=== PATIENT | male | born 1990 | race Caucasian/White ===

== ENCOUNTER 2019-11-07 03:05 | Emergency (ER) | payer BC ==
[~2019-11-07] VITALS: Ht 172.7 cm; Wt 138.5 kg
[2019-11-07 03:09] VITALS: Ht 172.7 cm; Wt 138.5 kg
[2019-11-07 05:37] VITALS: BP 145/83
== END 2019-11-07 05:37 | disposition home or self-care (01) ==
LOC: ED 03:05
DX: B34.9 Viral infection, unspecified (principal)
CPT/HCPCS: Q0092

== ENCOUNTER 2019-11-09 21:59 | Inpatient (IN) | payer BC ==
[~2019-11-09] VITALS: Ht 172.7 cm; Wt 145.0 kg
[2019-11-09 23:16] LABS: BASOPHIL % 0.1 % (0-2); RED CELL DISTRIBUTION WIDTH 14.4 % (11.5-14.5)
[2019-11-09 23:17] LABS: PLATELET COUNT 128 x10^3mcL (130-400)
[2019-11-09 23:36] LABS: CALCIUM 7.6 mg/dL (8.5-10.1); CARBON DIOXIDE 25.6 mmol/L (21-32); CHLORIDE SERUM 95 mmol/L (98-107); GFR1 > 60 mL/min; GLUCOSE SERUM 110 mg/dL (74-106); POTASSIUM SERUM 4.2 mmol/L (3.5-5.1); SODIUM SERUM 129 mmol/L (136-145)
[2019-11-09 23:41] LABS: ALKALINE PHOSPHATASE 58 U/L (46-116); ALT/SGPT 40 U/L (16-63); AST/SGOT 59 U/L (15-37); BILIRUBIN TOTAL 0.43 mg/dL (0.20-1.00); TOTAL PROTEIN, SERUM 6.4 g/dL (6.4-8.2)
[2019-11-09 23:42] LABS: ALBUMIN 2.6 g/dL (3.4-5.0)
[2019-11-10] VITALS (8 sets, daily range): BP systolic 96–155; BP diastolic 55–97
[2019-11-10 07:03] LABS: CALCIUM 7.7 mg/dL (8.5-10.1); CARBON DIOXIDE 25.9 mmol/L (21-32); CHLORIDE SERUM 97 mmol/L (98-107); GFR1 > 60 mL/min; GLUCOSE SERUM 107 mg/dL (74-106); POTASSIUM SERUM 4.3 mmol/L (3.5-5.1); SODIUM SERUM 131 mmol/L (136-145)
[2019-11-11] VITALS (15 sets, daily range): BP systolic 91–119; BP diastolic 41–65; Ht 172.7 cm; Wt 145.0 kg
[2019-11-11 04:34] LABS: UA SPECIFIC GRAVITY >=1.030 (1.005-1.035); microscopic required? YES; urine erythrocyte 3+ (NEGATIVE)
[2019-11-11 06:13] LABS: CALCIUM 7.5 mg/dL (8.5-10.1); CARBON DIOXIDE 23.4 mmol/L (21-32); CHLORIDE SERUM 105 mmol/L (98-107); GFR1 > 60 mL/min; GLUCOSE SERUM 100 mg/dL (74-106); POTASSIUM SERUM 3.9 mmol/L (3.5-5.1); SODIUM SERUM 137 mmol/L (136-145)
[2019-11-11 06:43] LABS: BASOPHIL % 0.6 % (0-2)
[2019-11-11 06:49] LABS: PLATELET COUNT 124 x10^3mcL (130-400); RED CELL DISTRIBUTION WIDTH 14.8 % (11.5-14.5)
[2019-11-12] VITALS (17 sets, daily range): BP systolic 98–163; BP diastolic 42–76
[2019-11-12 06:12] LABS: CALCIUM 7.8 mg/dL (8.5-10.1); CARBON DIOXIDE 21.8 mmol/L (21-32); CHLORIDE SERUM 107 mmol/L (98-107); CREATININE SERUM 0.9 mg/dL (0.7-1.3); GFR1 > 60 mL/min; GLUCOSE SERUM 116 mg/dL (74-106); POTASSIUM SERUM 4.2 mmol/L (3.5-5.1); SODIUM SERUM 139 mmol/L (136-145)
[2019-11-12 06:20] LABS: BASOPHIL % 0.4 % (0-2); PLATELET COUNT 147 x10^3mcL (130-400)
[2019-11-12 07:19] LABS: RED CELL DISTRIBUTION WIDTH 15.1 % (11.5-14.5)
[2019-11-13] VITALS (17 sets, daily range): BP systolic 102–150; BP diastolic 35–78
[2019-11-13 04:53] LABS: BASOPHIL % 0.3 % (0-2); PLATELET COUNT 169 x10^3mcL (130-400)
[2019-11-13 05:00] LABS: RED CELL DISTRIBUTION WIDTH 15.1 % (11.5-14.5)
[2019-11-13 05:09] LABS: CALCIUM 7.9 mg/dL (8.5-10.1); CARBON DIOXIDE 25.7 mmol/L (21-32); CHLORIDE SERUM 106 mmol/L (98-107); CREATININE SERUM 0.9 mg/dL (0.7-1.3); GFR1 > 60 mL/min; GLUCOSE SERUM 100 mg/dL (74-106); POTASSIUM SERUM 3.9 mmol/L (3.5-5.1); SODIUM SERUM 140 mmol/L (136-145)
[2019-11-13] MEDS ORDERED: IPRATROPIUM BR2.5 ML IH (21:38)
[2019-11-13] MEDS ORDERED: LEV500PM IV (21:39)
[2019-11-13] MEDS ORDERED: AMERINET CHOICE40 MG IV (21:39)
[2019-11-13] MEDS ORDERED: TAMIFLU75 MG PEG (21:39)
[2019-11-13] MEDS ORDERED: HEP5I SC (21:40)
[2019-11-13] MEDS ORDERED: PAIN RELIEVER325 MG PEG (21:43)
== END 2019-11-13 23:08 | disposition short-term general hospital (02) | DRG 871 ==
LOC: ED 21:59 → DU 23:53 → IC 23:53 → DU 11-10 00:55 → IC 11-10 20:10
PROVIDERS: Emergency Medicine; ADMIT Internal Medicine
PROC: 5A1945Z Respiratory Ventilation, 24-96 Consecutive Hours (ICD-10-PCS; principal; 2019-11-10)
PROC: 0BH17EZ Insertion of Endotracheal Airway into Trachea, Via Natural or Artificial Opening (ICD-10-PCS; 2019-11-10)
PROC: 5A09357 Assistance with Respiratory Ventilation, Less than 24 Consecutive Hours, Continuous Positive Airway Pressure (ICD-10-PCS; 2019-11-10)
DX: A41.9 Sepsis, unspecified organism (principal); J96.01 Acute respiratory failure with hypoxia; J10.00 Influenza due to other identified influenza virus with unspecified type of pneumonia; Z68.42 Body mass index [BMI] 45.0-49.9, adult; E66.9 Obesity, unspecified; E66.01 Morbid (severe) obesity due to excess calories; Z71.3 Dietary counseling and surveillance; D69.6 Thrombocytopenia, unspecified; G47.33 Obstructive sleep apnea (adult) (pediatric)
CPT/HCPCS: 36600; 87804; A4628; C9113; G0378; J1644; J1940; J1956; J2550; J2704; J3010; J3490; J7030; J7620; Q0092